=== PATIENT | female | born 1980 | race Caucasian/White ===

== ENCOUNTER 2025-02-03 17:01 | Emergency (ER) | payer OTHER ==
[~2025-02-03] VITALS: Ht 154.9 cm; Wt 180.0 kg
[2025-02-03] MEDS ORDERED: diphenhydrAMINE 50 MG/ML VIAL IV STA (17:34)
[2025-02-03] MEDS ORDERED: PRED20TA PO (17:50)
[2025-02-03] MEDS: FAMOTIDINE 20 MG/2 ML VIAL IVP ONE (17:51)
[2025-02-03] MEDS ORDERED: EPIP0.3I2 IM (17:51)
[2025-02-03] MEDS ORDERED: FAMO40TA3 PO (17:51)
[2025-02-03 18:31] VITALS: O2SAT 96
[2025-02-03 18:45] VITALS: BP 118/61; TEMP 98.8
[2025-02-04] MEDS ORDERED: VENTAER INH (14:45)
[2025-02-04] MEDS ORDERED: EPIP0.3I2 IM (14:45)
[2025-02-04] MEDS ORDERED: CETI10CH PO (14:45)
== END 2025-02-03 18:57 | disposition home or self-care (01) ==
LOC: EDBD 17:01 → M ED 17:01
DX: T78.40XA Allergy, unspecified, initial encounter (principal); R06.2 Wheezing; L50.9 Urticaria, unspecified; Z79.52 Long term (current) use of systemic steroids; Z79.899 Other long term (current) drug therapy; Z88.2 Allergy status to sulfonamides; Z88.1 Allergy status to other antibiotic agents; Z88.8 Allergy status to other drugs, medicaments and biological substances; Z91.02 Food additives allergy status
CPT/HCPCS: 96374; 99284; J1308

== ENCOUNTER 2025-02-04 11:23 | Emergency (ER) | payer OTHER ==
[~2025-02-04] VITALS: Ht 154.9 cm; Wt 81.8 kg
[~2025-02-04 11:23] MED LIST: EPIP0.3I2 IM; FAMO40TA3 PO; PRED20TA PO
[2025-02-04] MEDS: FAMOTIDINE 20 MG/2 ML VIAL IVP ONE (13:17)
[2025-02-04 13:32] LABS: BASO # 0.0 10^3/uL (0.0-0.2); BASO % 0.2 % (0.0-1.0); EOS # 0.0 10^3/uL (0.0-0.5); EOS % 0.0 % (0.0-3.0); LYMPH # 1.2 10^3/uL (1.5-5.0); LYMPH % 7.2 % (24.0-44.0); MONO # 0.7 10^3/uL (0.0-0.8); MONO % 4.3 % (2.0-8.0); NEUTROPHILS # 14.8 10^3/uL (1.5-8.5); NEUTROPHILS % 87.9 % (36.0-66.0); PLATELET COUNT, AUTOMATED 253 10^3/uL (150-450)
[2025-02-04] MEDS: ALBUTEROL SULFATE 2.5 MG/0.5 ML INH CONCENTRATE NEB SOLN NEB ONE (13:49)
[2025-02-04 13:50] LABS: ERYTHROCYTE SEDIMENTATION RATE 9 mm/hr (0-20)
[2025-02-04 13:59] LABS: C REACTIVE PROTEIN QUANTITATIV < 0.50 MG/DL (<1.0)
[2025-02-04 14:01] LABS: ALT/SGPT 20 U/L (7.0-40); AST/SGOT 13 U/L (<34); CALCIUM LEVEL 9.5 MG/DL (8.5-10.1); CARBON DIOXIDE LEVEL 26 MMOL/L (20-31); CHLORIDE LEVEL 108 MMOL/L (98-107); COMPLEMENT C4 37.7 MG/DL (12-36); CREATININE FOR GFR 0.75 MG/DL (0.55-1.30); GLOMERULAR FILTRATION RATE > 90.0 (>58); POTASSIUM SERUM 4.2 MMOL/L (3.5-5.1); SODIUM LEVEL 143 MMOL/L (136-145)
[2025-02-04 14:30] VITALS: BP 116/62; O2SAT 99
[2025-02-04] MEDS ORDERED: EPIP0.3I2 IM (14:45)
[2025-02-04] MEDS ORDERED: CETI10CH PO (14:45)
[2025-02-04] MEDS ORDERED: VENTAER INH (14:45)
[2025-02-04 14:53] VITALS: TEMP 98.7
[2025-02-05] MEDS ORDERED: ALBU8.5H INH (00:08)
[2025-02-05] MEDS ORDERED: EPIN0.3I11 IM (00:08)
[2025-02-05] MEDS ORDERED: FAMO40TA3 PO (00:08)
[2025-02-05] MEDS ORDERED: PRED20TA PO ×2 (00:08→14:32)
[2025-02-05] MEDS ORDERED: CETI10CH PO (00:08)
[2025-02-05] MEDS ORDERED: DIPH-435 PO (14:32)
[2025-02-05] MEDS ORDERED: FAMO20TA PO (14:32)
[2025-02-07 21:55] LABS: COAGULATION FACTOR XII ACTIVIT 83 % normal (50-150)
[2025-02-08 09:05] LABS: TRYPTASE 6.6 mcg/L (<11.0)
[2025-02-08 10:34] LABS: C1 ESTER INHIB. NON FUNCTIONAL 26 mg/dL (21-39)
[2025-02-09 23:45] LABS: C1 ESTERASE INHIB. FUNCTIONAL > 100 % (>=68)
== END 2025-02-04 14:54 | disposition home or self-care (01) ==
LOC: M ED 11:23 → EDBD 11:23 → M ED 14:54
DX: T78.40XA Allergy, unspecified, initial encounter (principal); L50.1 Idiopathic urticaria; Z79.52 Long term (current) use of systemic steroids; Z79.899 Other long term (current) drug therapy; Z88.2 Allergy status to sulfonamides; Z88.1 Allergy status to other antibiotic agents; Z88.8 Allergy status to other drugs, medicaments and biological substances
CPT/HCPCS: 80048; 80076; 83519; 85025; 85280; 85652; 86140; 86160; 86161; 93041; 94640; 94760; 96374; 99285; J1308; J2919

== ENCOUNTER 2025-02-04 19:48 | Observation (INO) | payer OTHER ==
[~2025-02-04] VITALS: Ht 154.9 cm; Wt 85.7 kg
[~2025-02-04 19:48] MED LIST changes: +CETI10CH PO; +VENTAER INH
[2025-02-04] MEDS ORDERED: LEVALBUTEROL 1.25 MG 0.5ML CONCENTRATE NEB INH PRN (22:15)
[2025-02-04] MEDS ORDERED: ACETAMINOPHEN 325 MG TAB PO PRN (22:15)
[2025-02-05] MEDS ORDERED: ALBU8.5H INH (00:08)
[2025-02-05] MEDS ORDERED: CETI10CH PO (00:08)
[2025-02-05] MEDS ORDERED: PRED20TA PO ×2 (00:08→14:32)
[2025-02-05] MEDS ORDERED: EPIN0.3I11 IM (00:08)
[2025-02-05] MEDS ORDERED: FAMO40TA3 PO (00:08)
[2025-02-05] MEDS ORDERED: HOME MED LIST COMPLETE! XX SCH (00:15)
[2025-02-05 00:30] VITALS: BP 121/69; TEMP 97.7; O2SAT 100
[2025-02-05] MEDS: diphenhydrAMINE 50 MG/ML VIAL IV PRN (00:49)
[2025-02-05] MEDS: CETIRIZINE 10 MG TAB PO ONE (03:44)
[2025-02-05] MEDS: FAMOTIDINE IV BAG 20 MG in IV 1 EA IV ONE (03:44)
[2025-02-05 04:05] VITALS: BP 112/55; TEMP 97.2; O2SAT 97
[2025-02-05 06:47] LABS: PLATELET COUNT, AUTOMATED 264 10^3/uL (150-450)
[2025-02-05 07:26] LABS: ALT/SGPT 17 U/L (7.0-40); AST/SGOT 12 U/L (<34); CALCIUM LEVEL 9.6 MG/DL (8.5-10.1); CARBON DIOXIDE LEVEL 24 MMOL/L (20-31); CHLORIDE LEVEL 108 MMOL/L (98-107); CREATININE FOR GFR 0.65 MG/DL (0.55-1.30); GLOMERULAR FILTRATION RATE > 90.0 (>58); POTASSIUM SERUM 4.5 MMOL/L (3.5-5.1); SODIUM LEVEL 141 MMOL/L (136-145)
[2025-02-05 07:36] VITALS: BP 113/57; O2SAT 98
[2025-02-05] MEDS: FAMOTIDINE 20 MG TAB PO SCH (08:23)
[2025-02-05] MEDS: predniSONE 20 MG TAB PO SCH (08:23)
[2025-02-05] MEDS: ENOXAPARIN 40 MG/0.4 ML SYRINGE (J1650 PER 10MG) SC SCH (08:23)
[2025-02-05 12:00] VITALS: BP 112/59; TEMP 97.5; O2SAT 96
[2025-02-05] MEDS ORDERED: DIPH-435 PO (14:32)
[2025-02-05] MEDS ORDERED: FAMO20TA PO (14:32)
== END 2025-02-05 15:08 | disposition home or self-care (01) ==
LOC: M ED 19:48 → M ED INP 19:49 → M PCU 02-05 00:25
PROVIDERS: ADMIT Family Medicine; ATTEND Family Medicine
DX: L50.9 Urticaria, unspecified (principal); E66.9 Obesity, unspecified; J45.909 Unspecified asthma, uncomplicated; L71.9 Rosacea, unspecified; N81.10 Cystocele, unspecified; Z79.899 Other long term (current) drug therapy; Z79.52 Long term (current) use of systemic steroids; Z88.2 Allergy status to sulfonamides; Z88.0 Allergy status to penicillin; Z88.1 Allergy status to other antibiotic agents; Z88.8 Allergy status to other drugs, medicaments and biological substances; Z91.018 Allergy to other foods
CPT/HCPCS: 36415; 80053; 85027; 96372; 96374; 96375; 96376; 99284; J1200; J1308; J1650; J2919; J7512